=== PATIENT | female | born 1975 | race Caucasian/White ===

== ENCOUNTER 2016-09-29 10:57 | Day surgery (SDC) | payer OTHER ==
[2016-09-27 12:43] VITALS: BMI 33.0
[~2016-09-29 10:57] MED LIST: LACTATED RINGERS 1,000 ML IV SCH; LIDOCAINE 1% 20 ML VIAL (10MG/ML) FOR IV START INTRADERMA PRN
[2016-09-29 12:12] VITALS: TEMP 97
[2016-09-29] MEDS ORDERED: PROPOFOL 10 MG/ML 20 ML VIAL IV ONE (12:46)
--- NOTE | 2016-09-29 13:01 | P.PCN ---
Date of Procedure: 09/29/16 Procedure(s) Performed: Brief history: Patient is a pleasant 41-year-old white female, scheduled for an elective upper endoscopy as well as colonoscopy as a part of evaluation of iron deficiency anemia. Recently she was noted to have a hemoglobin of 9.9 and iron indices consistent with iron deficiency anemia. She denies any GI symptoms. Procedure performed: Esophagogastroduodenoscopy with biopsy Colonoscopy with snare polypectomy Preoperative diagnosis: Iron deficiency anemia Anesthesia: MAC Procedure: After informed consent was obtained from the patient was brought into the endoscopy unit and IV sedation was administered by anesthesia under continuous monitoring. Initially upper endoscopy was done. The Olympus GF 160 video endoscope was inserted inserted into the mouth and esophagus intubated without any difficulty and was gradually advanced into the stomach and duodenum and carefully examined. The bulb and second part of the duodenum appeared normal. Biopsies were done from this area to rule out celiac disease. The scope was then withdrawn into the stomach adequately insufflated with air and upon careful examination the antrum and body, cardia and fundus appeared normal. The scope was then withdrawn into the esophagus. The GE junction was located at 40 cm to the incisors. It appeared regular with no erythema erosions or ulcerations. Rest of the esophagus appeared normal. Patient tolerated the procedure well. At this time the patient continued to remain sedation. Initial digital rectal examination was normal. Olympus CF 160 video colonoscope was then inserted into the rectum and gradually advanced to the cecum without any difficulty. Careful examination was performed as the scope was gradually being withdrawn. The prep was excellent. The cecum, ascending colon, transverse colon, descending colon, sigmoid colon and rectum appeared normal. There was a 1 cm sigmoid colon polyp that was removed by snare polypectomy. Retroflexion was performed in the rectum and no lesions were noted. Patient tolerated the procedure well. Impression: 1. Upper endoscopy was essentially within normal limits with no evidence of esophagitis or peptic ulcer disease 2. Colonoscopy revealed 1 cm; polyp status post polypectomy. Rest of the colon appeared normal. Recommendations: Findings of this examination were discussed with the patient as well as her family. She was advised to follow with the biopsy results. If the biopsy shows a tubular adenoma she can have a repeat colonoscopy in 5 years
[2016-09-29 13:13] VITALS: RESP 16
[2016-09-29 13:28] VITALS: BP 127/72; PULSE 85
== END 2016-09-29 14:10 | disposition home or self-care (01) ==
LOC: ORWHC2ENDO 10:57
PROVIDERS: ATTEND Internal Medicine Gastroenterology
DX: D12.5 Benign neoplasm of sigmoid colon (principal); D50.9 Iron deficiency anemia, unspecified; K21.9 Gastro-esophageal reflux disease without esophagitis; E66.9 Obesity, unspecified; Z68.33 Body mass index [BMI] 33.0-33.9, adult; E07.9 Disorder of thyroid, unspecified; Z79.899 Other long term (current) drug therapy; Z88.5 Allergy status to narcotic agent
CPT/HCPCS: 81025; 88305; 45385; 43239; J2704

== ENCOUNTER 2021-07-14 12:46 | Emergency (ER) | payer OTHER ==
[2021-07-14 13:06] VITALS: TEMP 97
[2021-07-14] MEDS ORDERED: KETOROLAC 15 MG/ML 1 ML VIAL IM STA (15:32)
--- NOTE | 2021-07-14 15:37 | ED ---
Back Pain HPI - General Chief Complaint: Back Pain/Injury Stated Complaint: Back pain Time Seen by Provider: 07/14/21 15:21 Source: patient Limitations: no limitations - History of Present Illness Initial Comments: This is a 46 year old female who presents for lower back pain following a fall one week ago. She has a long standing history of sciatica and was attending physical therapy and chiropractic appointments 6 days a week. She found no relief from either treatment and has an MRI scheduled for next week. However, the fall from one week ago exacerbated the pain and Ibuprofen has been ineffective. She also tried Baclofen from her mother which was also ineffective. States that her movement is very limited and she feels like she is unable to sit, requiring her to sit on a donut pillow. Ambulation is also very difficult for her. Her sciatica symptoms have not changed since her fall. Denies any loss of bowel or bladder control. MD Complaint: back pain, fall Onset/Timin -: week(s) Radiation: none Severity: severe Severity scale (1-10): 10 Quality: sharp, stabbing Consistency: constant Improves With: none Worsens With: none Context: fall Treatments Prior to Arrival: NSAIDS - Related Data Home Medications Medication Instructions Recorded Confirmed Cyclobenzaprine [Flexeril] 10 mg PO DAILY PRN 07/14/21 07/14/21 Ibuprofen [Motrin] 800 mg PO Q8H PRN 07/14/21 07/14/21 Levothyroxine Sodium 137 mcg PO DAILY 07/14/21 07/14/21 Lidocaine/Menthol [Icy Hot 4%-1% 1 patch TOPICAL DAILY PRN 07/14/21 07/14/21 Patch] Previous Rx's Medication Instructions Recorded Meloxicam [Mobic] 7.5 mg PO DAILY #30 tab 07/14/21 Ondansetron Odt [Zofran Odt] 4 mg PO Q8HR PRN #20 tab 07/14/21 Allergies Allergy/AdvReac Type Severity Reaction Status Date / Time hydrocodone [From Vicodin] AdvReac Nausea & Verified 07/14/21 18:04 Vomiting, SKIN CRAWLING FEELING Review of Systems ROS Statement: Those systems with pertinent positive or pertinent negative responses have been documented in the HPI. ROS Other: All systems not noted in ROS Statement are negative. Past Medical History Past Medical History: Thyroid Disorder Additional Past Medical History / Comment(s): anemia, hashimotos History of Any Multi-Drug Resistant Organisms: None Reported Past Surgical History: Section, Tonsillectomy Additional Past Surgical History / Comment(s): Tummy tuck Past Anesthesia/Blood Transfusion Reactions: No Reported Reaction Past Psychological History: No Psychological Hx Reported Smoking Status: Never smoker Past Alcohol Use History: Occasional Past Drug Use History: Marijuana - Past Family History Mother Family Medical History: No Reported History General Exam Limitations: no limitations General appearance: alert, in distress Head exam: Present: atraumatic, normocephalic, normal inspection Respiratory exam: Present: normal lung sounds bilaterally. Absent: respiratory distress, wheezes, rales, rhonchi, stridor Cardiovascular Exam: Present: regular rate, normal rhythm, normal heart sounds. Absent: systolic murmur, diastolic murmur, rubs, gallop, clicks Back exam: Present: normal inspection, other (Tenderness to deep palpation of the coccyx and right posterior pelvis. ) Neurological exam: Present: alert, oriented X3, CN II-XII intact Psychiatric exam: Present: normal affect, normal mood Skin exam: Present: warm, dry, intact, normal color. Absent: rash Course Vital Signs 07/14/21 07/14/21 13:03 18:41 Temperature 97 F L Pulse Rate 89 87 Respiratory 16 18 Rate Blood Pressure 136/77 123/85 O2 Sat by Pulse 100 98 Oximetry - Reevaluation(s) Time: 16:30 (Pain not controlled with Toradol. States that she has tolerated Percocet in the past. Will provide dose of percocet with zofran to control the nausea.) Time: 17:52 (Pain is still present but under control. She is now localizing the pain to the right buttocks and gluteal cleft. Will obtain additional XRs for fracture rule out. ) Medical Decision Making - Medical Decision Making Given the fall and progressive back pain, XR of lumbar and sacral spine obtained. Toradol tried initially for pain with no relief. Percocet administered with Zofran given her history with nausea associated with narcotics. XR of lumbar and sacral spine were unremarkable. Patient reexamined and questioned again and states that she feels like the pain may be more in her right buttocks than her lower back. Will obtain XR of the femur and hip/pelvis for complete workup. Additional XRs unremarkable. Will send short term rx for mobic and provide a starter pack of Tylenol #3 with additional rx for zofran. Instructed patient to avoid the mobic with morphine. Return precautions reviewed in depth with the patient. Advised to return to the emergency room if symptoms worsen or do not improve. Patient verbalized understanding. She will plan to follow through with her MRI as scheduled in one week. - Radiology Data Radiology results: report reviewed, image reviewed Disposition Clinical Impression: Strain of lumbar region Disposition: HOME SELF-CARE Condition: Stable Instructions (If sedation given, give patient instructions): Acute Low Back Pain (ED) Additional Instructions: Return to the emergency department if symptoms worsen or do not improve. Do not take Motrin with the Meloxicam. Is patient prescribed a controlled substance at d/c from ED?: No Referrals: Nellie Brush MD [Primary Care Provider] - 1-2 days
[2021-07-14] MEDS ORDERED: oxyCODONE-APAP 7.5-325MG 1 EACH TAB PO STA (16:40)
[2021-07-14] MEDS ORDERED: ONDANSETRON ODT 4 MG TAB PO STA (16:41)
--- NOTE | 2021-07-14 17:33 | XR ---
EXAMINATION TYPE: XR lumbar spine 2 or 3V, XR sacrum coccyx DATE OF EXAM: 07/14/2021 COMPARISON: CT dated 06/07/2011 INDICATION: Pain after fall TECHNIQUE: Standard views of the lumbar spine and sacrum/coccyx FINDINGS: Preserved lumbar lordosis. No significant anterolisthesis or retrolisthesis. No definite vertebral julien dy collapse or acute displaced fracture. Degenerative changes of the lumbar spine with tiny multileve l opposing endplate osteophytosis. Degenerated L4-5 disc. Grossly unremarkable sacroiliac joints. Left pelvic phleboliths. No definite s acral or coccygeal fracture identified. Please note that a subtle sacral or coccygeal nondisplaced fr acture can't be excluded by this x-ray. IMPRESSION: No obvious lumbar, sacral or coccygeal fracture identified. Incidental findings as described above.
[2021-07-14 18:43] VITALS: BP 123/85; PULSE 87; RESP 18
--- NOTE | 2021-07-14 18:52 | XR ---
EXAMINATION TYPE: XR Hip RT and AP Pelvis DATE OF EXAM: 07/14/2021 COMPARISON: NONE HISTORY: Pain. Fall. TECHNIQUE: 3 views FINDINGS: Pelvic ring appears intact. Proximal right femur and hip joint appear intact. Sacroiliac rin ints are intact. IMPRESSION: Negative pelvis and right hip exam. No fracture.
--- NOTE | 2021-07-14 18:53 | XR ---
EXAMINATION TYPE: XR femur RT DATE OF EXAM: 07/14/2021 COMPARISON: NONE HISTORY: Pain TECHNIQUE: 4 views FINDINGS: There is no evidence of fracture nor dislocation. Hip joint and knee joint appear intact. T here is no sign of knee joint effusion. IMPRESSION: Negative right femur exam. No fracture.
[2021-07-14] MEDS ORDERED: ACET/COD 300 MG/30 MG STARTER PACK 6 TAB BTL PO STA (19:05)
[2021-07-14] MEDS ORDERED: ONDANSETRON 4 MG ODT STARTER PACK 2 TAB BTL PO STA (19:07)
== END 2021-07-14 19:10 | disposition home or self-care (01) ==
LOC: EC 12:46
DX: S39.012A Strain of muscle, fascia and tendon of lower back, initial encounter (principal); Z88.5 Allergy status to narcotic agent; X58.XXXA Exposure to other specified factors, initial encounter
CPT/HCPCS: 96372; 72100; 72220; 73502; 73552; 99283; J1885; S0119; 99284

== ENCOUNTER → 2022-11-02 | Outpatient (CLI) | payer OTHER ==
--- NOTE | 2022-11-02 15:12 | MR ---
EXAMINATION TYPE: MR cervical spine wo con DATE OF EXAM: 11/02/2022 1:45 PM COMPARISON: NONE HISTORY: Neck pain, RUE radiculopathy. Fall x2 last year. Multiplanar MultiSpin echo imaging of the cervical spine was performed. Comparison: none C2-C3: No evidence for degenerative disc disease. No disc bulge/herniation or protrusion. No Canal stenosis. Foramina are patent bilaterally. C3-C4: Mild decreased signal and loss of height compatible with degenerative disc disease. Left parac entral disc protrusion effaces the ventral thecal sac with mild ventral CORD contact. No evidence for central stenosis. Early compressive myelopathy suggested. Mild left foraminal encroachment. C4-C5: Mild decreased signal and loss of height compatible with degenerative disc disease. Left parac entral disc protrusion/herniation effaces the ventral thecal sac with mild ventral CORD contact. No e vidence for central stenosis. Early compressive myelopathy suggested. Mild left foraminal encroachmen t. C5-C6: Moderate disc desiccation with subligamentous disc herniation posterocentrally to the right. V entral CORD contact with mild central stenosis. Increased signal within the cervical spinal cord comp atible with compressive myelopathy. Degenerative change cervical apophyseal joints with right greater than left foraminal encroachment. C6-C7: Mild disc desiccation posterior central disc bulge. No shayne herniation or central stenosis. N o cord compression or central stenosis. Foramina are patent bilaterally. C7-T1: No evidence for degenerative disc disease. No disc bulge/herniation or protrusion. No Canal stenosis. Foramina are patent bilaterally. Cervical segments are intact. There is normal alignment. Cervical spinal cord is of normal signal. Craniovertebral junction relationships are within normal limits. IMPRESSION: 1. Multilevel degenerative disc disease with multilevel disc extrusion/herniation as discussed above greatest at C5-6 where there is mild central stenosis. 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 See above.
== END | disposition home or self-care (01) ==
LOC: RADMRIMAIN 13:04
PROVIDERS: ATTEND Nurse Practitioner Family
DX: M47.22 Other spondylosis with radiculopathy, cervical region (principal); M51.16 Intervertebral disc disorders with radiculopathy, lumbar region; M43.12 Spondylolisthesis, cervical region; G95.20 Unspecified cord compression
CPT/HCPCS: 72141

== ENCOUNTER → 2023-02-14 | Outpatient (CLI) | payer OTHER | END | disposition home or self-care (01) | LOC: LABPAT 14:18 | PROVIDERS: ATTEND Orthopaedic Surgery | DX: Z01.812 Encounter for preprocedural laboratory examination (principal); Z22.322 Carrier or suspected carrier of Methicillin resistant Staphylococcus aureus; M47.812 Spondylosis without myelopathy or radiculopathy, cervical region; M48.02 Spinal stenosis, cervical region | CPT/HCPCS: 87070 ==

== ENCOUNTER 2024-01-04 20:38 | Inpatient (IN) | payer OTHER ==
[2024-01-04] MEDS ORDERED: SODIUM CHLORIDE 0.9% 1,000 ML BAG ONE (21:15)
[2024-01-04] MEDS ORDERED: NAPROXEN 250 MG TAB ONE (22:04)
== END 2024-01-05 16:15 | disposition home or self-care (01) | DRG 351 ==
LOC: 4SSUR 20:38
PROVIDERS: ADMIT Hospitalist; ATTEND Hospitalist
DX: M25.462 Effusion, left knee (principal); E03.9 Hypothyroidism, unspecified; M47.899 Other spondylosis, site unspecified; M25.461 Effusion, right knee; Z91.419 Personal history of unspecified adult abuse; Z88.5 Allergy status to narcotic agent; Z79.890 Hormone replacement therapy; Z79.899 Other long term (current) drug therapy